=== PATIENT | male | born 1950 | race Two or more races ===

== ENCOUNTER 2024-12-22 17:59 | Inpatient (IN) | payer MEDICARE, OTHER ==
[~2024-12-22] VITALS: Ht 172.7 cm; Wt 79.8 kg
[2024-12-22 19:05] LABS: CALCIUM, SERUM 9.6 mg/dL (8.5-10.1); CARBON DIOXIDE 23 mmol/L (21-32); CHLORIDE 104 mmol/L (98-107); CREATININE 1.3 mg/dL (0.6-1.3); GLUCOSE 108 mg/dL (74-106); SODIUM SERUM 139 mmol/L (136-145); UREA NITROGEN, BLOOD 16 mg/dL (7-18)
[2024-12-22 19:07] LABS: INR 1.32 (0.91-1.10); PROTHROMBIN TIME 13.7 SECS (9.2-11.1)
[2024-12-22 19:09] LABS: SERUM AMMONIA 7 umol/L (11-32)
[2024-12-22 19:11] LABS: BASOPHILS % (AUTO) 0.4 % (0.0-2.0); EOSINOPHILS # (AUTO) 0.1 K/uL (0.0-0.7); EOSINOPHILS % (AUTO) 1.5 % (0.0-6.0); HEMATOCRIT 44 % (39-51); HEMOGLOBIN 14.1 g/dL (13.5-17.5); LYMPHOCYTES # (AUTO) 2.1 K/uL (0.8-4.8); LYMPHOCYTES % (AUTO) 22.3 % (20.0-44.0); MEAN CORPUSCULAR HEMOGLOBIN 29 PG (26.0-33.0); MEAN CORPUSCULAR HGB CONC 32 g/dl (31.0-36.0); MEAN CORPUSCULAR VOLUME 90 fL (80-96); MONOCYTES % (AUTO) 10.4 % (2.0-12.0); NEUTROPHILS # (AUTO) 6.2 K/uL (1.8-8.9); NEUTROPHILS % (AUTO) 65.4 % (43.0-81.0); PLATELET COUNT (AUTO) 197 K/uL (150-450); RED BLOOD CELL COUNT(AUTO) 4.91 MIL/uL (4.5-6.0); WHITE BLOOD COUNT (AUTO) 9.4 K/uL (4.3-11.0)
[2024-12-22 19:12] LABS: ALANINE AMINOTRANSFERASE 27 U/L (12-78); ALBUMIN 3.5 g/dL (3.4-5.0); ALCOHOL, BLOOD < 3 mg/dL (0-10); ALKALINE PHOSPHATASE 121 U/L (46-116); ASPARTATE AMINOTRANSFERASE 28 U/L (15-37); BILIRUBIN,DIRECT 0.2 mg/dL (0.0-0.2); BILIRUBIN,TOTAL 0.7 mg/dL (0.2-1.0); SALICYLATE 1.1 mg/dL (2.8-20.0); TOTAL PROTEIN, SERUM 9.3 g/dL (6.4-8.2)
[2024-12-22 19:13] LABS: ACETAMINOPHEN 0 ug/ml (10-30)
[2024-12-22 19:13] LABS: APPEARANCE,URINE CLEAR (CLEAR); BILIRUBIN,URINE NEGATIVE (NEGATIVE); BLOOD, URINE NEGATIVE Ery/uL (NEGATIVE); COLOR,URINE YELLOW (YELLOW); KETONES,URINE TRACE mg/dL (NEGATIVE); LEUKOCYTE ESTERASE ,URINE NEGATIVE (NEGATIVE); NITRITE, URINE NEGATIVE (NEGATIVE); PH,URINE 5.5 (5.0-8.0); PROTEIN,URINE TRACE mg/dl (NEGATIVE); UGLUCOSE NEGATIVE (NEGATIVE); UROBILINOGEN,URINE 0.2 EU/dL (0.2)
[2024-12-22] MEDS: IV NS 0.9% 1,000 ML BAG IV ONE (19:15)
[2024-12-22 19:24] LABS: ADD URINE CULTURE NO; BACTERIA,URINE Rare /HPF (None Seen); MUCUS,URINE Moderate /LPF (None Seen); SQUAMOUS EPITHELIAL CELL,UR Rare /HPF (None Seen); WBC,URINE 0-2 /HPF (0-3)
[2024-12-22 19:34] LABS: AMPHETAMINE, URINE NEGATIVE (NEGATIVE); BARBITURATE, URINE NEGATIVE (NEGATIVE); BENZODIAZEPINE, URINE NEGATIVE (NEGATIVE); CANNABINOID, URINE NEGATIVE (NEGATIVE); COCCAINE, URINE NEGATIVE (NEGATIVE); OPIATE, URINE NEGATIVE (NEGATIVE); PHENCYCLIDINE SCREEN,URINE NEGATIVE (NEGATIVE)
[2024-12-22 21:35] VITALS: BP 101/64; TEMP 97.5; O2SAT 95
[2024-12-22] MEDS: IV NS 0.9% 1,000 ML IV PRN (21:53)
[2024-12-22] MEDS ORDERED: ACETAMINOPHEN 325 MG TABLET PO PRN (22:00)
[2024-12-22] MEDS ORDERED: MAG HYDROX/AL HYDROX/SIMETH 30 ML UDC PO PRN (22:00)
[2024-12-22] MEDS ORDERED: ONDANSETRON HCL/PF 4 MG/2 ML VIAL IVP PRN (22:00)
[2024-12-22] MEDS ORDERED: MAGNESIUM HYDROXIDE 30 ML UDC PO PRN (22:00)
[2024-12-23 07:00] VITALS: BP 123/83; TEMP 98.2; O2SAT 98
[2024-12-23 07:28] LABS: CALCIUM, SERUM 8.7 mg/dL (8.5-10.1); MAGNESIUM 2.1 mg/dL (1.8-2.4); PHOSPHORUS 3.2 mg/dL (2.5-4.9); POTASSIUM 3.9 mmol/L (3.5-5.1)
[2024-12-23 07:46] LABS: BASOPHILS % (AUTO) 0.4 % (0.0-2.0); EOSINOPHILS # (AUTO) 0.1 K/uL (0.0-0.7); EOSINOPHILS % (AUTO) 1.9 % (0.0-6.0); HEMATOCRIT 40 % (39-51); HEMOGLOBIN 12.9 g/dL (13.5-17.5); LYMPHOCYTES # (AUTO) 1.4 K/uL (0.8-4.8); LYMPHOCYTES % (AUTO) 17.9 % (20.0-44.0); MEAN CORPUSCULAR HEMOGLOBIN 29 PG (26.0-33.0); MEAN CORPUSCULAR HGB CONC 33 g/dl (31.0-36.0); MEAN CORPUSCULAR VOLUME 91 fL (80-96); MONOCYTES % (AUTO) 13.3 % (2.0-12.0); NEUTROPHILS # (AUTO) 5.2 K/uL (1.8-8.9); NEUTROPHILS % (AUTO) 66.5 % (43.0-81.0); PLATELET COUNT (AUTO) 164 K/uL (150-450); RED BLOOD CELL COUNT(AUTO) 4.38 MIL/uL (4.5-6.0); RED CELL DISTRIBUTION WIDTH 15.2 % (11.5-15.0); WHITE BLOOD COUNT (AUTO) 7.8 K/uL (4.3-11.0)
[2024-12-23 07:47] LABS: THYROID STIMULATING HORMONE 1.88 uIU/mL (0.358-3.74)
[2024-12-23] MEDS ORDERED: HYDROCODONE/APAP 5/325MG TABLET PO PRN (09:00)
[2024-12-23] MEDS: ASPIRIN 81 MG TAB.CHEW PO SCH (09:18)
[2024-12-23] MEDS: ENOXAPARIN SODIUM 40 MG/0.4 ML DISP.SYRIN SQ SCH (09:19)
[2024-12-23 09:55] LABS: HDL CHOLESTEROL 31 mg/dL (40-60); LDL 94 mg/dL (0-99); TRIGLYCERIDES 91 mg/dL (30-150)
[2024-12-23] MEDS ORDERED: TAMS-12 PO (11:07)
[2024-12-23] MEDS ORDERED: FINA5TAB11 PO (11:07)
[2024-12-23] MEDS ORDERED: GABA300C PO (11:07)
[2024-12-23 11:41] LABS: CHOLESTEROL 122 mg/dL (<200)
[2024-12-23 16:00] VITALS: BP 106/87; TEMP 98.6; O2SAT 93
[2024-12-23 18:20] LABS: CREATINE KINASE, TOTAL 87 U/L (39-308)
[2024-12-23 20:00] VITALS: BP 118/72; TEMP 98.1; O2SAT 95
[2024-12-23] MEDS: ATORVASTATIN 40 MG TABLET PO SCH (21:44)
[2024-12-24 07:00] VITALS: BP 119/83; TEMP 98.2; O2SAT 95
[2024-12-24] MEDS: GABAPENTIN 300 MG CAPSULE PO SCH (09:05)
[2024-12-24] MEDS: FINASTERIDE (5 MG) 5 MG TABLET PO SCH (09:05)
[2024-12-24 10:38] VITALS: BP 119/83; TEMP 98.2; O2SAT 95
[2024-12-24 16:00] VITALS: BP 108/73; TEMP 98.4; O2SAT 97
[2024-12-24 20:00] VITALS: BP 105/73; TEMP 98.6; O2SAT 95
[2024-12-24] MEDS: TAMSULOSIN 0.4 MG CAP.SR.24H PO SCH (21:22)
[2024-12-25 08:00] VITALS: BP 122/84; TEMP 98.2; O2SAT 96
== END 2024-12-25 14:16 | disposition home or self-care (01) | DRG 69 ==
LOC: ER 18:07 → MED 21:24
PROVIDERS: ATTEND Nurse Practitioner Acute Care
DX: G45.9 Transient cerebral ischemic attack, unspecified (principal); G93.40 Encephalopathy, unspecified; G81.94 Hemiplegia, unspecified affecting left nondominant side; Z86.73 Personal history of transient ischemic attack (TIA), and cerebral infarction without residual deficits; N40.0 Benign prostatic hyperplasia without lower urinary tract symptoms; Z20.822 Contact with and (suspected) exposure to COVID-19; G31.84 Mild cognitive impairment of uncertain or unknown etiology; M54.16 Radiculopathy, lumbar region; Z79.899 Other long term (current) drug therapy
CPT/HCPCS: 36415; 70450-TC; 71045-TC; 80048-TC; 80061-TC; 80076-TC; 81001; 82140-TC; 82550-TC; 82607-TC; 83735-TC; 83921; 84100-TC; 84425; 84443-TC; 84484-TC; 85025-TC; 85730-TC; 87081-TC; 87086-TC; 92526; 92611-TC; 97112-TC; 97116-TC; 97530-TC; 97535-TC; A4223; G0378; G0480; J1650; J7030